=== PATIENT | male | born 1975 | race Caucasian/White ===

== ENCOUNTER 2019-01-24 22:23 | Emergency (ER) | payer BC ==
[~2019-01-24] VITALS: Ht 175.3 cm; Wt 154.2 kg
[2019-01-24] MEDS: MORPHINE 4 MG/ML INJ. SYRINGE IVP ONE (23:24)
[2019-01-25 01:22] VITALS: BP_SYST 131
== END 2019-01-25 01:22 | disposition home or self-care (01) ==
LOC: SED 22:23
DX: S39.012A Strain of muscle, fascia and tendon of lower back, initial encounter (principal); S16.1XXA Strain of muscle, fascia and tendon at neck level, initial encounter; S20.212A Contusion of left front wall of thorax, initial encounter; M25.552 Pain in left hip; R03.0 Elevated blood-pressure reading, without diagnosis of hypertension; V43.52XA Car driver injured in collision with other type car in traffic accident, initial encounter; Y93.89 Activity, other specified; Y92.410 Unspecified street and highway as the place of occurrence of the external cause; Y99.8 Other external cause status
CPT/HCPCS: 71250; 72100; 72125; 73502; 74176; 96374; 99284; J2270